=== PATIENT | male | born 1975 | race Caucasian/White ===

== ENCOUNTER 2024-10-15 11:38 | Inpatient (IN) | payer OTHER ==
[2024-10-15] MEDS ORDERED: KETOROLAC TROMETHAMINE 15 MG/ML VIAL ONE (12:22)
[2024-10-15] MEDS ORDERED: ACETAMINOPHEN INJECTION 100 ML ONE (12:22)
[2024-10-15 12:28] LABS: HEMATOCRIT 45.6 % (35.4-49); HEMOGLOBIN 15.3 GM/dL (11.7-16.9); MCH 30.5 pg (25.7-33.7); MCHC 33.6 g/dl (32.0-35.9); MEAN CELL VOLUME 90.9 fl (80-96); MEAN PLT VOLUME 7.9 fl (7.5-11.1); PLATELET COUNT 374 10^3/uL (134-434); RBC 5.02 M/mm3 (4.00-5.60); RDW 13.4 % (11.9-15.9); WHITE BLOOD COUNT 19.4 K/mm3 (4.0-10.0)
[2024-10-15] MEDS: SODIUM CHLORIDE 0.9% 500 ML INFUS.BAG IV ONE ×2 (12:29→16:04)
[2024-10-15] MEDS: ACETAMINOPHEN 1000 MG/100 ML BAG IVPB ONE (12:29)
[2024-10-15] MEDS: KETOROLAC TROMETHAMINE 15 MG/ML VIAL IVPUSH ONE (12:30)
[2024-10-15 12:55] LABS: ALBUMIN 4.3 g/dl (3.4-5.0); BLOOD UREA NITROGEN 11.3 mg/dL (7-18)
[2024-10-15 12:59] LABS: BILIRUBIN,TOTAL 0.8 mg/dL (0.2-1)
[2024-10-15 13:00] LABS: TOT PROT 8.1 g/dl (6.4-8.2)
[2024-10-15 13:25] LABS: ANISOCYTOSIS 0; HELMET CELLS 0; HOWELL-JOLLY BODIES 0; MACROCYTOSIS 0; OVALOCYTE 0; ROULEAU 0; SICKELED CELLS 0; TARGET CELLS 0; TEAR DROP CELLS 0; TOXIC GRANULATION 0
[2024-10-15] MEDS ORDERED: PIPERACILLIN/TAZOB 3.375 GM 3.375 GM/50 ML BAG IVPB ONE (15:47)
[2024-10-15] MEDS ORDERED: morphine SULFATE 4 MG/ML VIAL ONE (15:47)
[2024-10-15] MEDS ORDERED: ONDANSETRON 4 MG/2 ML VIAL ONE (15:47)
[2024-10-15] MEDS: morphine CARPU-JECT 4 MG/1 ML DISP.SYRIN IVPUSH ONE (16:02)
[2024-10-15] MEDS: ONDANSETRON 4 MG/2 ML VIAL IVPUSH ONE (16:02)
[2024-10-15] MEDS: PIPERACILLIN/TAZOB 3.375 GM 3.375 GM in DEXTROSE 5%-WATER - 50 ML IVPB ONE (16:04)
[2024-10-15] MEDS ORDERED: LACTATED RINGERS SOLUTION 1,000 ML/1,000 ML INFUS.BAG IV SCH (17:00)
[2024-10-15] MEDS ORDERED: ONDANSETRON 4 MG/2 ML VIAL IVPUSH PRN (17:00)
[2024-10-16 09:49] LABS: BASO % 0.1 % (0-2.0); HEMATOCRIT 41.9 % (35.4-49); LYMPH % 8.2 % (8-40); MCH 30.4 pg (25.7-33.7); MCHC 33.5 g/dl (32.0-35.9); MEAN CELL VOLUME 90.8 fl (80-96); MEAN PLT VOLUME 8.2 fl (7.5-11.1); MONO % 6.4 % (3.8-10.2); NEUT % 85.3 % (42.8-82.8); PLATELET COUNT 323 10^3/uL (134-434); RBC 4.61 M/mm3 (4.00-5.60); RDW 13.3 % (11.9-15.9); WHITE BLOOD COUNT 18.7 K/mm3 (4.0-10.0)
[2024-10-16 10:00] LABS: POTASSIUM 3.8 mmol/L (3.5-5.1)
[2024-10-16 10:06] LABS: BLOOD UREA NITROGEN 10.8 mg/dL (7-18)
[2024-10-16 10:07] LABS: CALCIUM 9.3 mg/dL (8.5-10.1)
[2024-10-16 10:09] LABS: CREATININE 0.9 mg/dL (0.55-1.3)
[2024-10-16] MEDS: ACETAMINOPHEN 1000 MG/100 ML BAG IVPB PRN (10:23)
[2024-10-16] MEDS: SODIUM CHLORIDE 1,000 ML IV SCH ×2 (10:24→12:17)
[2024-10-16] MEDS: SODIUM CHLORIDE 1,000 ML IV STA (11:00)
[2024-10-16] MEDS: HEPARIN NA (PORCINE) 5,000 UNITS/ML 1ML VIAL SQ SCH (11:02)
[2024-10-16] MEDS: LACTATED RINGERS SOLUTION 1,000 ML/1,000 ML INFUS.BAG IV SCH (11:56)
[2024-10-16 12:51] LABS: INR 1.17 (0.83-1.09); PROTHROMBIN TIME (PATIENT) 13.2 SEC (9.7-13.0)
[2024-10-17] MEDS: LACTATED RINGERS SOLUTION 1000 ML INFUS.BAG IV ONE (07:50)
[2024-10-17 08:42] LABS: BASO % 0.2 % (0-2.0); EOS % 0.2 % (0-4.5); HEMATOCRIT 40.5 % (35.4-49); HEMOGLOBIN 13.4 GM/dL (11.7-16.9); LYMPH % 13.5 % (8-40); MCH 30.4 pg (25.7-33.7); MCHC 33.2 g/dl (32.0-35.9); MEAN CELL VOLUME 91.5 fl (80-96); MEAN PLT VOLUME 8.1 fl (7.5-11.1); MONO % 6.5 % (3.8-10.2); NEUT % 79.6 % (42.8-82.8); PLATELET COUNT 284 10^3/uL (134-434); RBC 4.43 M/mm3 (4.00-5.60); RDW 13.4 % (11.9-15.9)
[2024-10-17 09:03] LABS: POTASSIUM 3.9 mmol/L (3.5-5.1)
[2024-10-17 09:05] LABS: BLOOD UREA NITROGEN 9.5 mg/dL (7-18)
[2024-10-17 09:08] LABS: ALBUMIN 3.5 g/dl (3.4-5.0)
[2024-10-17 09:09] LABS: CALCIUM 8.8 mg/dL (8.5-10.1)
[2024-10-17 09:11] LABS: CREATININE 0.7 mg/dL (0.55-1.3)
[2024-10-17 09:12] LABS: TOT PROT 6.9 g/dl (6.4-8.2)
[2024-10-17] MEDS: SODIUM CHLORIDE 0.9% 1000 ML INFUS.BAG IV ONE (11:30)
[2024-10-17] MEDS: POLYETHYLENE GLYCOL (HEALTHYLAX) 3350 17 GM PACKET PO SCH (15:47)
[2024-10-18 07:09] LABS: BASO % 0.5 % (0-2.0); EOS % 0.8 % (0-4.5); HEMATOCRIT 42.1 % (35.4-49); HEMOGLOBIN 14.3 GM/dL (11.7-16.9); LYMPH % 21.3 % (8-40); MCHC 34.1 g/dl (32.0-35.9); MEAN CELL VOLUME 90.8 fl (80-96); MEAN PLT VOLUME 7.9 fl (7.5-11.1); MONO % 8.5 % (3.8-10.2); NEUT % 68.9 % (42.8-82.8); PLATELET COUNT 296 10^3/uL (134-434); RBC 4.63 M/mm3 (4.00-5.60); RDW 13.1 % (11.9-15.9); WHITE BLOOD COUNT 10.3 K/mm3 (4.0-10.0)
[2024-10-18 07:27] LABS: POTASSIUM 3.9 mmol/L (3.5-5.1)
[2024-10-18 07:30] LABS: CALCIUM 9.1 mg/dL (8.5-10.1)
[2024-10-18 07:31] LABS: ALBUMIN 3.5 g/dl (3.4-5.0); BLOOD UREA NITROGEN 6.4 mg/dL (7-18)
[2024-10-18 07:33] LABS: CREATININE 0.8 mg/dL (0.55-1.3)
[2024-10-18 07:35] LABS: BILIRUBIN,TOTAL 0.9 mg/dL (0.2-1)
[2024-10-18] MEDS: BISACODYL 5 MG TABLET.DR (FP) PO ONE (16:58)
[2024-10-18] MEDS: PEG 3350/NA SULF BICARB CL/KCL 4000 ML SOLN.RECON PO ONE (16:58)
[2024-10-19 08:51] LABS: BASO % 0.4 % (0-2.0); EOS % 2.2 % (0-4.5); HEMATOCRIT 43.5 % (35.4-49); HEMOGLOBIN 14.7 GM/dL (11.7-16.9); LYMPH % 18.9 % (8-40); MCH 30.2 pg (25.7-33.7); MCHC 33.8 g/dl (32.0-35.9); MEAN CELL VOLUME 89.4 fl (80-96); MEAN PLT VOLUME 7.7 fl (7.5-11.1); MONO % 7.5 % (3.8-10.2); PLATELET COUNT 316 10^3/uL (134-434); RBC 4.87 M/mm3 (4.00-5.60); RDW 13.2 % (11.9-15.9); WHITE BLOOD COUNT 9.1 K/mm3 (4.0-10.0)
[2024-10-19 09:07] LABS: INR 1.1 (0.83-1.09); PROTHROMBIN TIME (PATIENT) 12.6 SEC (9.7-13.0)
[2024-10-19 09:10] LABS: POTASSIUM 3.9 mmol/L (3.5-5.1)
[2024-10-19 09:17] LABS: CALCIUM 9.4 mg/dL (8.5-10.1)
[2024-10-19 09:18] LABS: ALBUMIN 3.7 g/dl (3.4-5.0); BLOOD UREA NITROGEN 6.7 mg/dL (7-18)
[2024-10-19 09:21] LABS: CREATININE 0.9 mg/dL (0.55-1.3)
[2024-10-19 09:23] LABS: TOT PROT 7.4 g/dl (6.4-8.2)
[2024-10-20 10:27] LABS: BASO % 0.3 % (0-2.0); EOS % 1.8 % (0-4.5); HEMOGLOBIN 14.7 GM/dL (11.7-16.9); LYMPH % 15.4 % (8-40); MCH 30.8 pg (25.7-33.7); MCHC 34.2 g/dl (32.0-35.9); MEAN CELL VOLUME 90.1 fl (80-96); MEAN PLT VOLUME 7.9 fl (7.5-11.1); MONO % 7.2 % (3.8-10.2); NEUT % 75.3 % (42.8-82.8); PLATELET COUNT 322 10^3/uL (134-434); RBC 4.77 M/mm3 (4.00-5.60); RDW 13.3 % (11.9-15.9)
[2024-10-20 10:34] LABS: POTASSIUM 3.7 mmol/L (3.5-5.1)
[2024-10-20 10:39] LABS: ALBUMIN 3.8 g/dl (3.4-5.0)
[2024-10-20 10:40] LABS: CALCIUM 9.2 mg/dL (8.5-10.1)
[2024-10-20 10:41] LABS: BLOOD UREA NITROGEN 11.8 mg/dL (7-18); CREATININE 1.1 mg/dL (0.55-1.3)
[2024-10-20 10:44] LABS: BILIRUBIN,TOTAL 1.2 mg/dL (0.2-1); TOT PROT 7.5 g/dl (6.4-8.2)
[2024-10-21 08:55] LABS: BASO % 0.3 % (0-2.0); EOS % 2.7 % (0-4.5); HEMATOCRIT 38.2 % (35.4-49); HEMOGLOBIN 13.6 GM/dL (11.7-16.9); LYMPH % 23.7 % (8-40); MCH 31.6 pg (25.7-33.7); MCHC 35.6 g/dl (32.0-35.9); MEAN CELL VOLUME 88.8 fl (80-96); MEAN PLT VOLUME 7.9 fl (7.5-11.1); MONO % 7.5 % (3.8-10.2); NEUT % 65.8 % (42.8-82.8); PLATELET COUNT 291 10^3/uL (134-434); RBC 4.31 M/mm3 (4.00-5.60); RDW 13.2 % (11.9-15.9); WHITE BLOOD COUNT 7.2 K/mm3 (4.0-10.0)
[2024-10-21 09:16] LABS: ALBUMIN 3.5 g/dl (3.4-5.0); BLOOD UREA NITROGEN 6.7 mg/dL (7-18); CALCIUM 8.8 mg/dL (8.5-10.1)
[2024-10-21 09:19] LABS: CREATININE 0.8 mg/dL (0.55-1.3)
[2024-10-21 09:20] LABS: BILIRUBIN,TOTAL 0.9 mg/dL (0.2-1); TOT PROT 6.6 g/dl (6.4-8.2)
[2024-10-21] MEDS: POLYETHYLENE GLYCOL 3350 255 GM BTL PO ONE (11:33)
[2024-10-21] MEDS: BISACODYL 5 MG TABLET.DR (FP) PO ONE (12:40)
[2024-10-21] MEDS: SODIUM CHLORIDE 1,000 ML IV SCH (15:53)
[2024-10-22] MEDS ORDERED: BUPIVACAINE HCL/PF 0.5% (5MG/ML) 10 ML VIAL ONE (07:31)
[2024-10-22] MEDS ORDERED: INDOCYANINE GREEN 25 MG/10 ML VIAL IVPUSH ONE (07:32)
[2024-10-22] MEDS ORDERED: LIDOCAINE HCL 1%, 10 MG/ML (20ML VIAL) ONE (07:36)
[2024-10-22] MEDS ORDERED: BUPIVACAINE HCL/PF 0.25% (2.5MG/ML) 10 ML VIAL ONE (07:36)
[2024-10-22] MEDS ORDERED: PROPOFOL 20 ML ONE (07:39)
[2024-10-22] MEDS ORDERED: ROCURONIUM BROMIDE 50 MG/5 ML SYRINGE ONE ×2 (07:39→09:31)
[2024-10-22] MEDS ORDERED: LIDOCAINE HCL/PF 2% SDV 5ML VIAL ONE (07:39)
[2024-10-22] MEDS ORDERED: MIDAZOLAM HCL 2 MG/2 ML SINGLE DOSE VIAL ONE (07:41)
[2024-10-22] MEDS ORDERED: CEFOXITIN SODIUM/DEXTROSE,ISO 2 GM/50 ML BAG ONE (08:25)
[2024-10-22] MEDS: cefOXitin SODIUM 2 GM VIAL (RESTRICTED TO ID) IVPB ONE (08:32)
[2024-10-22] MEDS ORDERED: HYDROmorphone HCl 2 MG/ML VIAL ONE (09:13)
[2024-10-22] MEDS ORDERED: ACETAMINOPHEN INJECTION 100 ML ONE ×2 (10:25→11:32)
[2024-10-22] MEDS ORDERED: SUGAMMADEX SODIUM 200 MG/2 ML VIAL ONE (10:31)
[2024-10-22] MEDS ORDERED: ONDANSETRON 4 MG/2 ML VIAL IVPUSH PRN ×2 (10:55→11:11)
[2024-10-22] MEDS: LACTATED RINGERS SOLUTION 1,000 ML IV SCH (13:56)
[2024-10-22] MEDS: ACETAMINOPHEN 1000 MG/100 ML BAG IVPB SCH (15:08)
[2024-10-22 16:12] VITALS: BMI 24.2
[2024-10-23] MEDS: IBUPROFEN 800 MG/8 ML IJ IVPB PRN (00:12)
[2024-10-23 03:02] VITALS: RESP 18
[2024-10-23] MEDS: ENOXAPARIN NA (PORCINE) 40 MG/0.4 ML DISP.SYRIN SQ SCH (09:54)
[2024-10-23] MEDS: PANTOPRAZOLE SODIUM 40 MG VIAL IVPUSH SCH (09:54)
[2024-10-23 09:58] LABS: BASO % 0.1 % (0-2.0); EOS % 0.1 % (0-4.5); HEMATOCRIT 41.1 % (35.4-49); HEMOGLOBIN 13.3 GM/dL (11.7-16.9); MCH 29.7 pg (25.7-33.7); MCHC 32.3 g/dl (32.0-35.9); MEAN CELL VOLUME 92.1 fl (80-96); MEAN PLT VOLUME 8.2 fl (7.5-11.1); NEUT % 83.8 % (42.8-82.8); PLATELET COUNT 317 10^3/uL (134-434); RBC 4.46 M/mm3 (4.00-5.60); RDW 13.6 % (11.9-15.9); WHITE BLOOD COUNT 15.8 K/mm3 (4.0-10.0)
[2024-10-23 10:13] LABS: POTASSIUM 3.8 mmol/L (3.5-5.1)
[2024-10-23 10:21] LABS: CALCIUM 9.3 mg/dL (8.5-10.1)
[2024-10-23 10:22] LABS: ALBUMIN 3.5 g/dl (3.4-5.0); BLOOD UREA NITROGEN 5.8 mg/dL (7-18); MAGNESIUM 2.2 mg/dL (1.8-2.4)
[2024-10-23 10:25] LABS: CREATININE 0.8 mg/dL (0.55-1.3)
[2024-10-23 10:26] LABS: BILIRUBIN,TOTAL 1.1 mg/dL (0.2-1)
[2024-10-23 10:27] LABS: TOT PROT 7.2 g/dl (6.4-8.2)
[2024-10-24 09:26] LABS: BASO % 0.2 % (0-2.0); EOS % 0.7 % (0-4.5); HEMATOCRIT 41.9 % (35.4-49); HEMOGLOBIN 13.7 GM/dL (11.7-16.9); LYMPH % 8.3 % (8-40); MCH 30.1 pg (25.7-33.7); MCHC 32.7 g/dl (32.0-35.9); MEAN CELL VOLUME 92.2 fl (80-96); MEAN PLT VOLUME 8.1 fl (7.5-11.1); MONO % 3.7 % (3.8-10.2); NEUT % 87.1 % (42.8-82.8); PLATELET COUNT 310 10^3/uL (134-434); RBC 4.54 M/mm3 (4.00-5.60); RDW 13.6 % (11.9-15.9); WHITE BLOOD COUNT 12.2 K/mm3 (4.0-10.0)
[2024-10-24 09:46] LABS: POTASSIUM 3.6 mmol/L (3.5-5.1)
[2024-10-24 09:56] LABS: ALBUMIN 3.5 g/dl (3.4-5.0)
[2024-10-24 09:57] LABS: BLOOD UREA NITROGEN 8.3 mg/dL (7-18); CALCIUM 9.2 mg/dL (8.5-10.1); MAGNESIUM 2.1 mg/dL (1.8-2.4)
[2024-10-24 10:00] LABS: CREATININE 0.7 mg/dL (0.55-1.3)
[2024-10-24 10:01] LABS: BILIRUBIN,TOTAL 0.9 mg/dL (0.2-1); TOT PROT 6.9 g/dl (6.4-8.2)
[2024-10-25 09:29] LABS: BASO % 0.4 % (0-2.0); EOS % 1.5 % (0-4.5); HEMATOCRIT 42.7 % (35.4-49); HEMOGLOBIN 14.1 GM/dL (11.7-16.9); LYMPH % 7.3 % (8-40); MCH 30.4 pg (25.7-33.7); MCHC 32.9 g/dl (32.0-35.9); MEAN CELL VOLUME 92.3 fl (80-96); MONO % 4.6 % (3.8-10.2); NEUT % 86.2 % (42.8-82.8); PLATELET COUNT 338 10^3/uL (134-434); RBC 4.62 M/mm3 (4.00-5.60); RDW 13.6 % (11.9-15.9); WHITE BLOOD COUNT 8.8 K/mm3 (4.0-10.0)
[2024-10-25 09:44] LABS: POTASSIUM 3.6 mmol/L (3.5-5.1)
[2024-10-25 09:54] LABS: BILIRUBIN,TOTAL 0.9 mg/dL (0.2-1)
[2024-10-25 09:57] LABS: ALBUMIN 3.5 g/dl (3.4-5.0); BLOOD UREA NITROGEN 6.9 mg/dL (7-18); CALCIUM 9.3 mg/dL (8.5-10.1); MAGNESIUM 2.1 mg/dL (1.8-2.4); TOT PROT 7.1 g/dl (6.4-8.2)
[2024-10-25 10:00] LABS: CREATININE 0.8 mg/dL (0.55-1.3)
[2024-10-25] MEDS ORDERED: IBUPROFEN 600 MG TABLET (FP) PO PRN (10:55)
[2024-10-25] MEDS ORDERED: oxyCODONE HCL 5 MG TABLET PO PRN (11:04)
[2024-10-25] MEDS: ACETAMINOPHEN 500 MG TABLET (FP) PO SCH (18:25)
[2024-10-26 06:33] VITALS: PULSE 78; TEMP 98.4
[2024-10-26 09:14] LABS: BASO % 0.6 % (0-2.0); EOS % 2.9 % (0-4.5); HEMATOCRIT 41.2 % (35.4-49); LYMPH % 18.9 % (8-40); MCHC 33.9 g/dl (32.0-35.9); MEAN CELL VOLUME 91.3 fl (80-96); MEAN PLT VOLUME 7.9 fl (7.5-11.1); NEUT % 67.6 % (42.8-82.8); PLATELET COUNT 355 10^3/uL (134-434); RBC 4.52 M/mm3 (4.00-5.60); RDW 13.8 % (11.9-15.9); WHITE BLOOD COUNT 7.7 K/mm3 (4.0-10.0)
[2024-10-26 09:31] LABS: POTASSIUM 3.9 mmol/L (3.5-5.1)
[2024-10-26 09:34] LABS: ALBUMIN 3.3 g/dl (3.4-5.0); BLOOD UREA NITROGEN 8.4 mg/dL (7-18); CALCIUM 9.3 mg/dL (8.5-10.1); MAGNESIUM 2.3 mg/dL (1.8-2.4)
[2024-10-26 09:37] LABS: CREATININE 0.8 mg/dL (0.55-1.3)
[2024-10-26 09:39] LABS: BILIRUBIN,TOTAL 0.6 mg/dL (0.2-1); TOT PROT 7.1 g/dl (6.4-8.2)
[2024-10-26 10:59] VITALS: BP 110/78
== END 2024-10-26 13:47 | disposition home or self-care (01) | DRG 221 ==
LOC: JER 11:38 → JERBED 15:16 → OBSVTOIN 15:44 → J7W 17:57 → J8W 10-22 13:54
PROVIDERS: ADMIT Internal Medicine; ATTEND Nurse Practitioner Acute Care
PROC: 0D7N8ZZ Dilation of Sigmoid Colon, Via Natural or Artificial Opening Endoscopic (ICD-10-PCS; 2024-10-15)
PROC: 0DTN4ZZ Resection of Sigmoid Colon, Percutaneous Endoscopic Approach (ICD-10-PCS; principal; 2024-10-22 08:00)
DX: K56.2 Volvulus (principal); H91.93 Unspecified hearing loss, bilateral; R10.9 Unspecified abdominal pain; R11.10 Vomiting, unspecified
CPT/HCPCS: 36415; 74019-TC-FY; 74177-TC; 80048; 80053; 83690; 83735; 85025; 85610; 86140; 86850; 86900; 86901; 88307-TC; 94010; 94760; 99285-25; G0378; J0131; J1644